=== PATIENT | female | born 1935 | race Caucasian/White ===

== ENCOUNTER 2020-02-21 13:03 | Outpatient (CLI) | payer MEDICARE, SELFPAY ==
--- NOTE | ~2020-02-21 | DEXA_ITS ---
Bone Density Report Name: Bryanna Camarillo Age: 84 Sex: Female Ethnicity: White Date of : 1935 Indication: postmenopausal; parental hip fracture; height loss; Referring Provider: Armand Sanchez Study: Bone densitometry was performed. Exam Date: February 21, 2020 Accession number: [id number] Bone Density: Region BMD T-score Z-score Classification AP Spine (L1-L4) 0.681 -3.3 -0.5 Osteoporosis Femoral Neck (Left) 0.603 -2.2 0.2 Osteopenia Total Hip (Left) 0.783 -1.3 0.9 Osteopenia Total Hip Bilateral Avg 0.772 -1.4 0.8 Osteopenia Femoral Neck (Right) 0.562 -2.6 -0.2 Osteoporosis Total Hip (Right) 0.761 -1.5 0.7 Osteopenia World Health Organization criteria for BMD impression classify patients as: Normal (T-score at or above -1.0), Osteopenia (T-score between -1.0 and -2.5), or Osteoporosis (T-score at or below -2.5). 10-year Fracture Risk: FRAX not reported because: Some T-score for Spine Total or Hip Total or Femoral Neck at or below -2.5 Treated for osteoporosis Clinical Information Provided by Patient: Parent has had a hip fracture Is being treated for osteoporosis Has used the following medications: Prolia (i.e. denosumab), Vitamin D, Calcium Patient maximum height was 65 Menopause Age: 47 Onset of menses at age 16 Number of children 2 Impression: The patient has osteoporosis, based on the Total Spine T-score. The patient has risk factors, including: parental hip fracture. Discussion: It is important to ask patients whether they are taking their medications and to encourage continued and appropriate compliance with their osteoporosis therapies to reduce fracture risk. It is also important to review their risk factors and encourage appropriate calcium and vitamin D intakes, exercise, fall prevention and other lifestyle measures. Follow-Up: Consider a repeat BMD and Vertebral Fracture Assessment (VFA) exam in 2 years or sooner if medically necessary, to reassess this patient's status. Reported by: JV on 02/21/2020 1:30:00 PM. Reviewed, dictated and finalized at location A. [facility]
== END 2020-02-21 13:04 | disposition home or self-care (01) ==
PROVIDERS: PCP Internal Medicine; Visit Provider Internal Medicine
DX: M81.0 Age-related osteoporosis without current pathological fracture (principal); M85.852 Other specified disorders of bone density and structure, left thigh; M85.851 Other specified disorders of bone density and structure, right thigh
CPT/HCPCS: 77080